=== PATIENT | male | born 1980 | race Caucasian/White ===

== ENCOUNTER 2016-09-11 13:53 | Emergency (ER) | payer SELFPAY ==
[~2016-09-11] VITALS: Ht 180.3 cm; Wt 87.0 kg
[2016-09-11 14:05] VITALS: BP 164/98
[2016-09-11] MEDS ORDERED: IBUPROFEN 800MG TABLET PO ONE (15:00)
== END 2016-09-11 16:38 | disposition home or self-care (01) ==
LOC: ER 14:02
DX: M54.9 Dorsalgia, unspecified (principal); F17.210 Nicotine dependence, cigarettes, uncomplicated
CPT/HCPCS: 72070; 99283; 99284

== ENCOUNTER 2017-12-16 11:55 | Emergency (ER) | payer SELFPAY ==
[~2017-12-16] VITALS: Ht 180.3 cm; Wt 97.0 kg
[2017-12-16] MEDS ORDERED: IBUPROFEN 600MG TABLET PO ONE (15:00)
[2017-12-16 17:12] VITALS: BP 145/79
== END 2017-12-16 17:43 | disposition home or self-care (01) ==
LOC: ER 12:33
DX: M79.641 Pain in right hand (principal); M25.531 Pain in right wrist; F17.200 Nicotine dependence, unspecified, uncomplicated
CPT/HCPCS: 73110; 73130; 99284